=== PATIENT | male | born 1995 | race Caucasian/White ===

== ENCOUNTER 2024-05-09 15:12 | Emergency (ER) | payer OTHER ==
[~2024-05-09] VITALS: Ht 182.9 cm; Wt 70.0 kg
[2024-05-09 15:15] VITALS: O2SAT 99
[2024-05-09 16:03] LABS: BASOPHILS % 0.5 % (0.0-2.0); EOSINOPHILS % 0.4 % (0.0-5.0); HEMATOCRIT. 39.2 % (42.0-52.0); HEMOGLOBIN. 13.2 g/dL (14.0-18.0); LYMPHOCYTES % 14.4 % (20.0-50.0); MEAN CORPUSCULAR HEMOGLOBIN 29.4 pg (28.0-32.0); MEAN CORPUSCULAR HGB CONC 33.7 g/dL (31.0-37.0); MEAN PLATELET VOLUME 9.1 fl (7.4-10.4); MONOCYTES % 6.6 % (2.0-8.0); NEUTROPHILS % 78.1 % (40.0-76.0); PLATELET 323 x1000/uL (130-400); WHITE BLOOD COUNT 8.1 x1000/uL (4.5-11.0)
[2024-05-09 16:09] LABS: CARBON DIOXIDE 29 mEq/L (21-32); CHLORIDE 102 mEq/L (98-107); POTASSIUM 3.9 mEq/L (3.5-5.1); SODIUM 135 mEq/L (136-145)
[2024-05-09 16:10] LABS: CALCIUM 9.2 mg/dL (8.7-10.4)
[2024-05-09 16:12] VITALS: TEMP 36.78072
[2024-05-09 16:15] LABS: CREATININE 0.8 mg/dL (0.6-1.3); GLUCOSE 354 mg/dL (70-105); UREA NITROGEN BLOOD 12 mg/dL (9-23)
[2024-05-09 16:16] LABS: ALANINE AMINOTRANSFERASE 20 IU/L (10-49); ASPARTATE AMINOTRANSFERASE 13 IU/L (<34)
[2024-05-09 16:17] LABS: ALBUMIN 3.8 g/dL (3.2-4.8); BILIRUBIN DIRECT 0.1 mg/dL (<=3.0); BILIRUBIN TOTAL 0.4 mg/dL (0.1-1.0); ETHANOL BLOOD < 10 mg/dL (<10); PROTEIN TOTAL 6.6 g/dL (6.0-8.3); PROTHROMBIN TIME 10.7 sec (9.6-11.0); TROPONIN I HIGH SENSITIVITY < 4 ng/L (3.0-53)
[2024-05-09] MEDS: SODIUM CHLORIDE 0.9% 1,000 ML IV ONE ×2 (16:22→16:36)
[2024-05-09 16:38] LABS: BETA HYDROXYBUTYRATE < 0.1 mMol/L (0.0-0.3)
[2024-05-09] MEDS ORDERED: BLOOD SUGAR DIAGNOSTIC STRIP TEST SCH (17:00)
[2024-05-09 17:44] VITALS: BP 120/78; PULSE 78; RESP 12; O2SAT 100
[2024-05-09] MEDS ORDERED: INSULIN LISPRO 100 UNITS/ML SUBCUT SCH (18:20)
== END 2024-05-09 17:06 | disposition home or self-care (01) ==
LOC: ER 15:12
DX: E11.65 Type 2 diabetes mellitus with hyperglycemia (principal)
CPT/HCPCS: 80076; 80048; 82010; 80320; 85025; 85610; 84484; 36415; 71045; 96360; 99284; J7030; Z7610; G0480